=== PATIENT | male | born 1960 | race Caucasian/White ===

== ENCOUNTER 2020-09-20 18:43 | Inpatient (IN) | payer OTHER ==
[~2020-09-20] VITALS: Ht 175.3 cm; Wt 74.8 kg
--- NOTE | 2020-09-20 19:30 | NUR ---
DR LIGHT AT BEDSIDE FOR MSE.
[2020-09-20 19:40] VITALS: Ht 175.3 cm; Wt 74.8 kg
[2020-09-20 20:07] LABS: BASOPHIL % 0.4 % (0.2-1.5); PLATELET COUNT 238 x10^3mcL (152-348); RED CELL DISTRIBUTION WIDTH 17.1 % (12.1-16.2)
--- NOTE | 2020-09-20 20:08 | NUR ---
AFIB ON CM, MEDICATED PT WITH 10MG DILTIAZEM.
[2020-09-20 20:19] LABS: ALBUMIN 3.4 g/dL (3.4-5.0); BILIRUBIN TOTAL 1.4 mg/dL (0.20-1.00); CALCIUM 9.1 mg/dL (8.5-10.1); CARBON DIOXIDE 25.3 mmol/L (21-32); CREATININE SERUM 1.5 mg/dL (0.7-1.3); POTASSIUM SERUM 5.5 mmol/L (3.5-5.1)
[2020-09-20 21:58] VITALS: BP 136/95
--- NOTE | 2020-09-20 22:00 | NUR ---
LAB WAS UNABLE TO DRAW BLOOD CULTURES, PER ELECTRO MECHANIC SHE WILL WAIT FOR NEXT SHIFT TO TRY TO DRAW LABS FOR BLOOD CX DUE TO PT BEING A HARD STICK
--- NOTE | 2020-09-20 22:05 | NUR ---
ATTEMPTED TO HELP PT COLLECT URINE X2, UNABLE TO URINATE. UNABLE TO COLLECT SPECIMEN AT THIS TIME
--- NOTE | 2020-09-20 23:47 | NUR ---
PT STILL UNABLE TO URINATE. AWARE. PT ATTEMPTED TO URINATE 2 MORE TIMES FOR LAB ORDER
--- NOTE | 2020-09-21 00:58 | NUR ---
PT STILL UNABLE TO URINATE, SITTING UP IN BED, OFFICVERS AT [facility], PT UPDATED ON POC
[2020-09-21 04:08] LABS: AMPHETAMINE QUAL UR NONE DETECTED (See below)
--- NOTE | 2020-09-21 04:22 | NUR ---
PT SATURATING LOW FROM 80-85% RT AT BEDSIDE, PT IS TACHY ,WILL CALL MD FOR ORDERS
--- NOTE | 2020-09-21 05:00 | NUR ---
PT TACHYCARDIC, RT AWARE AND ARE PREPARING TO PUT PT ON BIPAP. MORPHINE 2 MG GIVEN FOR PAIN WELL CARDIZEM 15MG. NURSE AND RT AT BEDSIDE
[2020-09-21 05:26] LABS: MAGNESIUM 2.5 mg/dL (1.8-2.4)
[2020-09-21 05:28] LABS: CHOLESTEROL/HDL RATIO 5.3
--- NOTE | 2020-09-21 05:44 | NUR ---
PT MOVED FROM BED 9 TO BED 11. PT WAS CONNECTED TO BIPAP MACHINE BY RT BROWN. PT TOLERATING WELL. PT CALM AND COOPERTIVE. PT HAS GUARDS AT BEDSIDE. PT PLACED ON FULL CM WILL CONTINUE TO MONITOR.
--- NOTE | 2020-09-21 06:18 | NUR ---
PT SEEN WITH BIPAP MASK OFF. PT WAS RE EDUCATED TO LEAVE MASK ON FOR HIS SAFETY.
--- NOTE | 2020-09-21 06:23 | NUR ---
SPOKE WITH DR. BELCHER REGARDING PTS ELEVATED HR. PER DR. BELCHER GIVE 9AM SCHEDULED MEDICATION OF METOPROLOL NOW.
--- NOTE | 2020-09-21 06:39 | NUR ---
PT MEDICATED WITH METOPROLOL 25MG PO PER DR. BELCHER ORDER.
--- NOTE | 2020-09-21 07:25 | NUR ---
GAVE REPORT TO DEV PATEL TO ASSUME PRIMARY CARE OF PT.
--- NOTE | 2020-09-21 07:30 | NUR ---
ASSUMED CARE. DR BELCHER CALLED . REPEAT EKG AT THIS TIME. CALL BACK WITH RESULTS. PT PULLED OUT IV. SEVERAL ATTEMPTS MADE.
--- NOTE | 2020-09-21 08:00 | NUR ---
DR BELCHER CALLED. PT EKG AFIB RVR WITH RATE OF 161. PER DR BELCHER CALL SURGERY FOR A CENTRAL LINE AND [facility]
[2020-09-21 08:17] LABS: BASOPHIL % 1.7 % (0.2-1.5); PLATELET COUNT 228 x10^3mcL (152-348)
--- NOTE | 2020-09-21 08:31 | NUR ---
DR TREVIZO STATES WILL REVIEW CHART AND PLACED ORDERS FOR HEART RATE.
--- NOTE | 2020-09-21 08:41 | NUR ---
CONSENT SIGNED FOR CENTRAL LINE. CENTRAL LINE AT BEDSIDE
[2020-09-21 08:56] LABS: CALCIUM 8.7 mg/dL (8.5-10.1); CREATININE SERUM 1.6 mg/dL (0.7-1.3); POTASSIUM SERUM 4.8 mmol/L (3.5-5.1)
--- NOTE | 2020-09-21 09:30 | NUR ---
ER MD SHAH AT BEDSIDE FOR CENTRAL LINE
--- NOTE | 2020-09-21 10:00 | NUR ---
CENTRAL LINE PLACED BY DR SHAH . MENA CALLED FOR STAT.
[2020-09-21 11:12] LABS: RED CELL DISTRIBUTION WIDTH 17.4 % (12.1-16.2)
--- NOTE | 2020-09-21 11:30 | NUR ---
PT CONTINUES ON MONITOR. LASIX NOT GIVEN. BP LOW.
--- NOTE | 2020-09-21 12:15 | NUR ---
DR BELCHER CALLED. PT INCREASED PAIN TO LOWER LEGS AND FEET. FEET PALE, TOES PURPLE, INCREASED REDNESS TO LOWER LEGS. FAINT PEDAL PULSE WITH DOPPLER. PER DR BELCHER ORDER VENOUS/ARTERIAL US OF LOWER LEGS
--- NOTE | 2020-09-21 13:40 | NUR ---
US AT BEDSIDE
--- NOTE | 2020-09-21 15:30 | NUR ---
JOB TRACER AT BEDSIDE
--- NOTE | 2020-09-21 17:30 | NUR ---
PT RESTING. RECHECK GLUCOSE WITH MEDS
--- NOTE | 2020-09-21 17:48 | NUR ---
GLUCOSE 60. PT GIVEN 8 OZ OJ . WILL MONITOR
--- NOTE | 2020-09-21 19:26 | NUR ---
REPORT TO ANDREW PATEL TO ASSUME CARE.
--- NOTE | 2020-09-21 20:50 | NUR ---
PT A&OX4, ASSISTED PT TO REPOSITION IN BED INTO POC IN HIGH FOWLERS. PT ON BIPAP.
--- NOTE | 2020-09-21 21:45 | NUR ---
MEDICATED PT PER MD ORDER, SEE EMAR. PT A&OX4 WITH E/U BREATHS, NO ACD NOTED.
--- NOTE | 2020-09-21 22:31 | NUR ---
PT ON BIPAP, A&OX4. MEDS GIVEN PER CENTRAL LINE,PO,SQ. PT TOLERATED WELL.
--- NOTE | 2020-09-21 23:20 | NUR ---
PT REQUESTED WATER, PROVIDED WATER. PT IS A&OX4 ON [employer]
--- NOTE | 2020-09-22 00:49 | NUR ---
PT FOUND SITTING ON THE FLOOR WITH A CUP URINATING, BIPAP WAS ALSO NOTED UNPLUGGED. BOTH BEDRAILS WERE UP. WHEN I ASKED PATIENT HOW HE ENDED UP ON THE FLOOR, HE SAID: "I SCOOT OUT OF BED TO THE EDGE TO GRAB A URINAL AND I FELL". PT ALSO STATED: "I'M OKAY, I'M OKAY". PT IS A&OX4, WORK OF BREATH UPON EXERTION. RT ARRIVED AND CONNECTED PT BACK TO BIPAP, O2 SAT AT 97%. ASSISTED PT TO STANDING POSITION WITH HELP FROM EMT SARAH, MINE UTILITY OPERATOR AND MYSELF THEN PT WAS ASSISTED TO SIT IN BED. PT CONTINUES TO OXYGENATE WELL ON BIPAP. PT DENIES INJURIES, UPON ASSESSMENT OF PATIENT, NO INJURIES NOTED TO BODY. PLACED A URINAL AND CALL LIGHT AT BEDSIDE. INSTRUCTED PT HE IS NOT TO GET OUT OF BED UNASSISTED. PT WAS NOT HANDCUFFED TO BEDRAIL AT THE TIME OF INCIDENT. PT VERBALIZED UNDERSTANDING THAT HE WOULD NOT SCOOT OUT OF BED TO THE FOOT OF THE BED NOR WOULD HE ATTEMPT TO GET OUT OF BED WITHOUT ASSISTANCE. INCIDENT. P PT VERBALIZED UNDERSTANDING HE IS NOT
--- NOTE | 2020-09-22 02:01 | NUR ---
PT REQUESTED BLANKET, PROVIDED HIM WITH BLANKET AND REPLACED URINAL AT BEDSIDE. PT IS A&OX4 ON BIPAP.
--- NOTE | 2020-09-22 03:10 | NUR ---
PT RESTING IN POC IN HIGH FOWLERS, EASILY AROUSED UPON ENTERING ROOM.
--- NOTE | 2020-09-22 04:40 | NUR ---
RT AT BEDSIDE.
--- NOTE | 2020-09-22 06:43 | NUR ---
PT MEDICATED PER MD ORDER, SEE BS 131 AT BEDSIDE. NO INSULIN NEEDED PER SLIDING SCALE. PT IS A&OX4.
[2020-09-22 08:56] LABS: PLATELET COUNT 165 x10^3mcL (152-348)
[2020-09-22 09:47] LABS: BASOPHIL % 0 % (0.2-1.5); RED CELL DISTRIBUTION WIDTH 17.6 % (12.1-16.2)
[2020-09-22 10:05] LABS: CARBON DIOXIDE 24.4 mmol/L (21-32); CREATININE SERUM 1.5 mg/dL (0.7-1.3); POTASSIUM SERUM 4.2 mmol/L (3.5-5.1)
--- NOTE | 2020-09-22 11:21 | NUR ---
REPORT GIVEN TO TRUDI PATEL TO ASSUME CARE OF PATIENT.
--- NOTE | 2020-09-22 12:31 | NUR ---
1112:30 UPDATE. OPTAINED REPORT FROM PRIOR RN. ON ARRIAL PT SLUMPED IN BED NEEDING URINAL. PT HAS GREAT DIFFICULTY MOVING AND REPOSITIONING HIMSELF, GROSS OBESITY WITH DISCOLORED EDEMATOUS LOWER ETREMITIES. WAS REPOSITIONED HIGH FOWLERS, REMAINS ON BIPAP. GLUCOSE 93.; V/S NOTED. LOVENO HAS BEEN ORDERED. LOVVVVE
--- NOTE | 2020-09-22 15:07 | NUR ---
ATTEMPTED TO CHANGE PT LINENS. IS ABLE TO SIT AT SIDE OF THE BED BUT UNABLE TO STAND. PT CAN NOT LIFT HIS BODY ENOUGH TO GET CLEAN PADS UNDER HIM AND IS TOO SOB TO LAY FLAT FOR 1 PERSON TO TURN HIM. WILL ATTEMPT LATER MORE ASSISTANCE IS AVAILABLE.
--- NOTE | 2020-09-22 18:05 | NUR ---
GLUCOSE NOTED. PLACED CLEAN RAMIREZ BEHIND HIS BACK. PT WAS NOTED TRYING TO OOB FROM THE FOOT OF THE GURNEY AGAIN. INSTRUCTED TO MOVE BACK ONTO THE GURNEY AND DO NOT ATTEMPT OOB. HE IS UNABLE TO SUPPORT HIS OWN WEIGHT AND REMAINS WEAK.
--- NOTE | 2020-09-22 18:36 | NUR ---
SHIFT UPDATE AND SUMMARY. PT HAS TOLERATED BIPAP VERY WELL. HAS TAKEN SOME PO FLUIDS WITH ASSIST. GLUCOSE MONITORING HAS CONTINUED. MEDS PER ORDER, PO'S LATE DUE TO ORDERING FROM PHARMACY. (AND V/S PARAMETERS) REMAINS VERY WEAK, NEARLY FULL ASSIST BUT A&O. UNABLE TO CLEARLY ASCULTATE BREATH SOUNDS DUE TO EXHAUST FAN IN ROOM AND PT BODY HABITUS. HANDS REMAIN COLD/ MOTTLED. UNABLE TO OBTAIN PERIPHERAL SAO2. ABD LARGE, PENDULOUS, HAS BEEN URINATING (URINAL) HAS AREAS OF BRUISING WELL SOME AREAS OF "EXCORIATED" APPEARING NON OPEN AREAS. LOWER EXTREMITIES= VERY EDEMATOUS AND WEEPING, PAINFUL TO TOUCH AND MOVEMENT. SOME AREAS OF REDNESS NOTED WHILE OTHERS APPERA PURPLE / BRUISED TO MOTTLED IN APPEARANCE. NO TRUE PRESSURE ULCERS TO NOTE- OBVIOUS IRRATATION, DIFFUSE REDNESS FROM RESIDUAL URINE AND TISSUE FLUID. V/S HAVE REMAINED STALE THROUGHOUT. WAS ABLE TO CHANGE LINEN AND PLACE CLEAN CHUX UNDER PT AT 18:30 WITH 2 PERSON ASSIST. GUARDS REMAIN PRESENT.
--- NOTE | 2020-09-22 18:45 | NUR ---
UPDATE AND SHIFT SUMMARY. PT HAS REMAINED TOLERATING BIPAP WELL, OCCASIONALLY SLEEPING / RESTING. NO RESP C/O'S "MORE THAN USUAL". S.O.B. BEING TREATED WITH BIPAP. HAS TAKEN PO FLUIDS, NOT FOOD DUE TO BIPAP. USED URINAL, NO BM'S. MEDS PROVIDED, IV TO SL AFTER IVPB. NOTED HIS SISTER WHO IS A NURSE CALLED. PT OK WITH STAFF DISCUSSING INFORMATION WITH HER AND PT HAS HER NUMBER TO CALL OR TEXT.
--- NOTE | 2020-09-22 20:14 | NUR ---
PT REQUESTING TO EAT. PT BIPAP MASK HAS BEEN REMOVED FOR EATING. PT HAS BEEN INSTRUCTED TO KEEP HIGH FLOW NONREBREATHER MASK ON WHILE EATING. WILL REMAIN WITH PT UNTIL COMPLETION OF MEAL AND WILL REPLACE BIPAP MAKENNA ON PT.
--- NOTE | 2020-09-22 20:26 | NUR ---
PT TOLERATED EATING MEAL WELL. PT WAS PLACED BACK ON BIPAP. PT ATE 100% OF MEAL PROVIDED AND DRANKS APROX 16ML OF FLUIDS.
--- NOTE | 2020-09-22 22:37 | NUR ---
PT VISIBLE SOILED BED LINENS. PT GOWN AND BED LINENS REMOVED AND REPLACED WITH FRESH CLEAN GOWN AND LINENS.
--- NOTE | 2020-09-22 23:45 | NUR ---
PT FOUND IN ROOM WITH TUBING TO BIPAP MASK DETATCHED FROM MASK. TUBING WAS REATTACHED TO PT MASK. PT AAO X4 AT THIS TIME NO ACUTE DISTRESS NOTED. PT O2 SAT ATTEMPTED BUT UNABLE TO OBTAIN ACCURATE READING DUE TO PT HAVING COLD MOTTLED FINGERS.
--- NOTE | 2020-09-22 23:49 | NUR ---
PT LAYING SUPINE IN GURNEY IN A POSITION OF COMFORT WITH EYES CLOSED. PT AAO X4 NO ACUTE DISTRESS NOTED. GUARDS REMAIN OUTSIDE PT ROOM.
--- NOTE | 2020-09-23 01:10 | NUR ---
PT SEEN LAYING IN RIGHT LATERAL POSITION IN GURNEY WITH EYES CLOSED. IN A POSITION OF COMFORT. PT REMAINS CONNECTED TO FULL CM AND BIPAP MACHINE. PT O2 SAT STILL UNABLE TO ASSESS DO TO MULTIPLE ATTEMPTS AND VARIED PROBE LOCATIONS. WILL CONTINUE TO MONITOR.
--- NOTE | 2020-09-23 03:42 | NUR ---
PT SITTING UPRIGHT IN GURNEY IN A POSITION OF COMFORT. PT AAO X4 NO ACUTE DISTRESS NOTED. PT REQUESTING WATER. PT WAS PROVIDED WITH WATER AT THIS TIME. GUARDS REMAIN AT BEDSIDE WITH PT.
--- NOTE | 2020-09-23 05:36 | NUR ---
SPOKE WITH RT REGARDING PTS BIPAP MACHINE ALARMS. PER RT IT THERE IS NO WAY TO SHUT ALARM OFF DUE TO PT SETTINGS. RT STATES NO NEED TO WORRY ABOUT THAT ALARM FOR PTS MACHINE.
--- NOTE | 2020-09-23 05:44 | NUR ---
PT REPORTING PAIN AND REQUESTING MEDICATION. PT WAS MEDICATED FOR PAIN PER MD ORDER ON EMAR.
--- NOTE | 2020-09-23 07:10 | NUR ---
GAVE REPORT TO FROYLAN RN TO ASSUME CARE OF PT.
--- NOTE | 2020-09-23 07:26 | NUR ---
PT UP NO DISTRESS OBSERVED RT AT BEDSIDE
--- NOTE | 2020-09-23 09:10 | NUR ---
TAKEN OFF BIPAP TO EAT. PLACED ON 15L NRB, RN FROYLAN AT BEDSIDE. SPO2:97%, PT TOLERATING WELL. WILL CONT.TO MONITOR
--- NOTE | 2020-09-23 09:19 | NUR ---
BRKFST TRAY GIVEN
[2020-09-23 09:56] LABS: PLATELET COUNT 158 x10^3mcL (152-348)
[2020-09-23 10:06] LABS: RED CELL DISTRIBUTION WIDTH 17.7 % (12.1-16.2)
[2020-09-23 10:20] LABS: CARBON DIOXIDE 25.8 mmol/L (21-32); CHLORIDE SERUM 100 mmol/L (98-107); CREATININE SERUM 1.1 mg/dL (0.7-1.3); GFR1 > 60 mL/min; GLUCOSE SERUM 112 mg/dL (74-106); POTASSIUM SERUM 3.6 mmol/L (3.5-5.1); SODIUM SERUM 136 mmol/L (136-145)
[2020-09-23 11:38] LABS: CALCIUM 8.3 mg/dL (8.5-10.1)
--- NOTE | 2020-09-23 12:20 | NUR ---
DENIES PAIN OR DISCOMFORT 2 CIM GUARDS AT BEDSIDE
--- NOTE | 2020-09-23 14:12 | NUR ---
STARTED ON IV ATB
--- NOTE | 2020-09-23 14:59 | NUR ---
MEDICATED FOR PAIN
--- NOTE | 2020-09-23 15:28 | NUR ---
PT ADMIT TO IC13 GAVE REPORT KRISHNA
[2020-09-23 16:20] VITALS: BP 133/78
--- NOTE | 2020-09-23 17:09 | NUR ---
PT WAS B/B HURNEY FROM ED TO BED 13. TELE PT. PT WAS A/OX3, WITH NON BREATHING MASK. O2 SAT 98%, WITH SOB. GENERALIZED WEAKNESS. PT SPEAKS FULL SENTENCES, FOLLOWS COMMAND, 2 CARE HOME GUARDS WITH PT. SKIN INTACT, BILATERAL LEG REDNESS WITH CELLULITIS BUT NO KO. RT CAME IN @1630, CHANGED BIPAP ON 07/14.
--- NOTE | 2020-09-23 18:12 | NUR ---
REMOVED BIPAP AND PLACED ON 10L OXYMIZER. SPO2:90% SO PT CAN EAT. WILL CONT.TO MONITOR
--- NOTE | 2020-09-23 18:13 | NUR ---
RT CAME IN AND PUT HIGH FLOW ON. DINNER WAS OFFERED. PT WAS SITTING UP TO EAT DINNER.
[2020-09-23 20:00] VITALS: BP 153/89
--- NOTE | 2020-09-23 20:00 | NUR ---
PATIENT RECEIVED RESTING IN BED, ALERT, ORIENTED X3. BREATH SOUNDS DIMINISHED, ON OXYMIZER AT 10L. R IJ TLC CATHETER PATENT AND INTACT. +2-3 EDEMA TO BLE NOTED. OBESE. VOIDING FREELY, USES URINAL. REDNESS TO BLE NOTED. GENERALIZED WEAKNESS, NEEDS MINIMAL ASSISTANCE WITH ADL'S. 2 DEPUTY AT THE BEDSIDE. PLACED CALL LIGHT WITHIN REACH. WILL CONTINUE TO MONITOR.
--- NOTE | 2020-09-23 21:11 | NUR ---
Spoke to Dr. Nina and Dr Ruano and ok to transfer to tele. Will continue to monitor. Fiona made aware.
--- NOTE | 2020-09-23 22:39 | NUR ---
PATIENT FOR TRANSFER TO ROOM 255 B. REPORT GIVEN TO LILY PATEL FOR CONTINUATION OF CARE.
--- NOTE | 2020-09-23 22:40 | NUR ---
PT RECIEVED FROM ICU. PT TRANSFERRED TO BED BY SELF. DENIES PAIN OR DISCOMFORT. PT PLACED ON BIPAP AT THIS TIME. NO S/S OF DISTRESS NOTED. ALL NEEDS AND CONCERNS ADDRESSED. WILL CONTINUE TO MONITOR.
[2020-09-24 05:48] VITALS: BP 150/105
--- NOTE | 2020-09-24 06:26 | NUR ---
PT RESTING IN BED AT THIS TIME, DENIES PAIN OR DISCOMFORT. PT BREATHING E/U ON BIPAP AT THIS TIME. DENIES SOB. SP02 97%. IV TO RIJ. CDI. NO S/S OF ACUTE DISTRESS NOTED. ALL NEEDS AND CONCERNS ADDRESSED. WILL CONTINUE TO MONITOR.
--- NOTE | 2020-09-24 07:04 | NUR ---
RECEIVED PT FROM [employer] FIRM ACCOUNTS MANAGER NURSE. AOX4 ABLE TO MAKE NEEDS KNOWN , DENIES HERNANDES/DIZZINESS. TELE 36 A FIB, DENIES CP. PERIPHERAL PULSES WEAK, EDEMA TO BLE +3. DIMINISHED LUNG SOUNDS PT CURRENTLY ON BIPAP, NO SOB/COUGH NOTED. ABDOMEN SOFT/DISTENDED. BOWEL SOUNDS ACTIVE. BLE SWELLING WITH REDNESS AND WEEPING NOTED. CALL LIGHT IN REACH, WILL CONTINUE TO MONITOR.
[2020-09-24 08:08] LABS: BASOPHIL % 0.4 % (0.2-1.5); PLATELET COUNT 155 x10^3mcL (152-348)
[2020-09-24 08:17] VITALS: BP 140/103
[2020-09-24 09:49] LABS: CALCIUM 8.1 mg/dL (8.5-10.1); CARBON DIOXIDE 26.1 mmol/L (21-32); CHLORIDE SERUM 101 mmol/L (98-107); GFR1 > 60 mL/min; GLUCOSE SERUM 93 mg/dL (74-106); POTASSIUM SERUM 3.4 mmol/L (3.5-5.1); SODIUM SERUM 137 mmol/L (136-145)
[2020-09-24 11:29] LABS: RED CELL DISTRIBUTION WIDTH 17.5 % (12.1-16.2)
[2020-09-24 12:16] VITALS: BP 135/93
[2020-09-24 16:52] VITALS: BP 139/97
[2020-09-24 19:54] VITALS: BP 137/102
--- NOTE | 2020-09-24 20:41 | NUR ---
PT RECIEVED AAO REG RESP DIMINISHED TO NEREYDA LOWER BASES ON 15L NRM SAT 94%,HOB,ABDOIDDOFT OBSES WITH ACTIVE BOWEL SOUNDS,PT WITH BLE EDEMA 4+ WEEPING AND NOT ABLE TO PALAPTE THE PULSES,RED ANAYA ALL OVER THE LEGS,PT HAS RIJ SITE PATENT AND INTACT,BED IN THE LOW POSITIONAND LOCKED,KEPT CLEAN AND DRY TO TOUCH AND WILL CONTINUE TO MONITOR.
--- NOTE | 2020-09-25 00:42 | NUR ---
PT CLEAN AND WAS MADE COMFORTABLE INBED AND WILL CONTINUE TO MONITOR.
[2020-09-25 05:27] VITALS: BP 134/99
--- NOTE | 2020-09-25 06:22 | NUR ---
PT HAD A RESTING NIGHT NO CHNAG EAT THIS TIME AND WILL CONTINUE TO MONITOR.
--- NOTE | 2020-09-25 07:20 | NUR ---
RECEIVED PT FROM MARKETING ANALYTICS ANALYST RN. AOX4 ABLE TO MAKE NEEDS KNOWN, DENIES HERNANDES/DIZZINESS. TELE 36 A FIB, DENIES CP. PERIPHERAL PULSES WEAK, +3 EDEMA TO BLE NOTED. CONTINUES ON NRB MASK AT 15LPM, BIPAP USE AT NIGHT. ABDOMEN SOFT/ROUND, DENIES N/V/D. PT MEDICATED FOR LOW BACK PAIN THIS AM. IV TO RIJ IN PLACE, CDI. CALL LIGHT IN REACH, WILL CONTINUE TO MONITOR.
[2020-09-25 09:07] VITALS: BP 137/104
--- NOTE | 2020-09-25 13:09 | NUR ---
PT BACK FROM [facility].
[2020-09-25 15:33] LABS: BASOPHIL % 0.1 % (0.2-1.5); PLATELET COUNT 170 x10^3mcL (152-348)
[2020-09-25 15:39] LABS: RED CELL DISTRIBUTION WIDTH 17.5 % (12.1-16.2)
[2020-09-25 16:00] LABS: CHLORIDE SERUM 99 mmol/L (98-107); CREATININE SERUM 0.8 mg/dL (0.7-1.3); GFR1 > 60 mL/min; GLUCOSE SERUM 153 mg/dL (74-106); POTASSIUM SERUM 3.4 mmol/L (3.5-5.1); SODIUM SERUM 140 mmol/L (136-145)
--- NOTE | 2020-09-25 20:25 | NUR ---
PT RECIEVED AAO REG RESP NO SOB ON 15L NRM SAT 95%,HOB,ABDO IS SOFT WITH ACTIVE BOWEL SOUNDS,PT WITH REDNESS TO BLE AND WEEPING EDEMA 4+ NO ABLE TO PALPATE PULSES NEED DOPPLER,PT HAS CENTRAL LINE TO THE RIJ SITE INTACT,CALL LIGHT EASY RACHED AND WILL CONTINUE TO MONITOR.
[2020-09-25 21:24] VITALS: BP 164/73
--- NOTE | 2020-09-25 22:23 | NUR ---
PT WAS SEEN BY RT WAS PUT IN R/A SAT 97%,WILL CONTINUE TO MONITOR.
[2020-09-26 05:33] VITALS: BP 160/91
--- NOTE | 2020-09-26 07:09 | NUR ---
DREESING WAS DONE TO THE RIJ LINE,SITE INTACT,PT HAD A RESTING AT THIS TIME,WILL CONTINUE TO MONITOR.
--- NOTE | 2020-09-26 07:41 | NUR ---
CONTINUATION OF CARE OF THE PATIENT,PT RESTING AT THIS TIME,REG RESP NO SOB PT IN R/A SAT 96%,ABDO IS SOFT WITH ACTIVE BOWEL SOUNDS,PT HAS CENTRAL LINE TO THE RIJ SITE INTACT,ABDO IS SOFT WITH ACTIVE BOWEL SOUNDS,PT WITH BLE EXTRE REDNESS AND WEEPING EDEMA 3+,KEPT CLEAN AND DRY TO TOUCH AND WILL CONTINUE TO MONITOR.
[2020-09-26 08:29] LABS: BASOPHIL % 0.1 % (0.2-1.5); PLATELET COUNT 144 x10^3mcL (152-348)
[2020-09-26 08:42] VITALS: BP 143/85
[2020-09-26 08:52] LABS: CALCIUM 7.3 mg/dL (8.5-10.1); CARBON DIOXIDE 32.4 mmol/L (21-32); CHLORIDE SERUM 97 mmol/L (98-107); CREATININE SERUM 0.9 mg/dL (0.7-1.3); GFR1 > 60 mL/min; GLUCOSE SERUM 105 mg/dL (74-106); SODIUM SERUM 136 mmol/L (136-145)
[2020-09-26 09:40] LABS: RED CELL DISTRIBUTION WIDTH 17.2 % (12.1-16.2)
--- NOTE | 2020-09-26 10:53 | NUR ---
PT WAS HELP TO THE BSC AHD A LARGE BOWEL MOVEMENT,CLEAN AND WAS MADE COMFORTABLE IN BED AND WILL CONTINUE TO MONITOR.
--- NOTE | 2020-09-26 12:08 | NUR ---
PT KEPT NPO FOR THE PROCEDURE THIS AFTERNOON AND AWARE AND COOPERATIVE,CONSENT SGIN,WILL CONTINUE TO MONITOR.
[2020-09-26 12:09] VITALS: BP 125/74
--- NOTE | 2020-09-26 12:55 | NUR ---
PT BEING SEEN BY THE RT ORDER,WILL CONTINUE TO MONITOR.
--- NOTE | 2020-09-26 13:26 | NUR ---
REC'D REPORT FROM SUYAPA PATEL.
--- NOTE | 2020-09-26 14:09 | NUR ---
TELE REMOVED. PT BROUGHT DOWN TO PUBLIC RELATIONS ASSISTANT BY RN X2
--- NOTE | 2020-09-26 15:26 | NUR ---
REC'D REPORT FROM LEONID PATEL. NEGATIVE CARDIAC CATH.
--- NOTE | 2020-09-26 15:28 | NUR ---
CALLED DR. BELCHER. NOTIFIED OF K 3.0 WITHOUT ANY COVERAGE. PT ON LASIX. REC'D ORDER FOR 40 MEQ KLOR CON NOW AND ANOTHER 40 MEQ IN 4 HOURS. ALSO NOTIFIED OF NORMAL CARDIAC CATH RESULTS.
--- NOTE | 2020-09-26 15:54 | NUR ---
PT BACK FROM CARDIAC CATH. AAOX4, SPEECH CLEAR, FOLLOWS COMMANDS. TR BAND TO R WRIST IN PLACE WITH WRIST GUARD. C/O 9/10 PAIN TO ANKLES AND FEET. DIFFUSE EDEMA ERYTHEMA. ELEVATED WITH PILLOWS. BP 159/96. CALLED DR. BELCHER TO NOTIFY OF CURRENT BP WELL PAIN MED HAVE DROPPED OFF. ORDERED TO RE ADD PAIN MED. NO PRN BP MEDS AT THIS TIME PER WILL GIVE MORPHINE ONCE VERIFIED BY PHARMACY.
--- NOTE | 2020-09-26 15:54 | NUR ---
1. When/if pt receives medical approve to receive solid foods, recommend CCHO 75g/Cardiac diet as tolerate.
--- NOTE | 2020-09-26 15:54 | NUR ---
Initial Nutrition Assessment: 255 B LEBRON PARRISH 60M MR Dx: CHF, New [place]set A-FIB PMHx: CAD, HTN, DM, Hypothyroidism, Asthma, Bronchitis PSHx: none Labs: (09/26) K 3.0L, CL 97L, BUN 19.0H, CA 7.3L, RBC 3.86L, H/H 11.8L/36L, PLT 144L* HbA1C no reported (09/23) Troponin 0.305H (09/20) BG 132H, Bili 1.4H, AST 304H, ALT 478H, ALK 145H, * HDL 24L, rest of lipid panel wnl Meds: Digoxin, Eliquis, Coreg, Mylanta/Maalox, Lasix, Lisinopril, Colace, Vancocin, Levaquin, Humulin PRN, Nitrostat Diet: NPO Except Meds PO intake since admission: 80-100%, average 93% x 3 meals Ht: 175 cm/69 in Wt: 74.84 kg/165 lbs BMI: 24.4 kg/m2 Bed scale: unable to assess d/t isolation IBW: 73 kg/160 lbs %IBW: 103% UBW: unknown Age: 60 y/o Food Allergies: unknown Edema: BLE edema Last BM: 09/26 per RN Skin: warm and dry Raghu: 16 Per H and P (09/20): 60 y/o male h/o CAD HTN DM obesity sleep apnea [facility] resident. he c/o increased sob throughout the day, symptoms worsen he was seen and evaluated at the ED, he was with SOB and weakness. he was hypoxic, and was in afib. cxr revealed congestion and infiltrates. he was admitted to tele. initial COV was neg. troponin was also neg. pt was admitted with dx: new onset AFIB, CAD, CHF, hypoxia, pneumonia, HTN, DM, hypothyroidism, asthma RD Note (09/26): Per progress note (09/26): Status post successful LAW/cardioversion, now normal sinus rhythm. Shortness of breath has improved. Unable to visit pt d/t isolation and unable to contact pt via pt's bedside phone d/t [facility] resident. Per pt's RN, pt has good appetite, and he ate 100% of his breakfast this morning. Pt started NPO after breakfast d/t procedure (cardiac catheterization). No n/v/d/c reported per RN. No chewing/swallowing difficulties observed per RN. Last BM was today per RN. Pt's average PO intake 93% meeting 100% energy and protein needs. Problem with: N/V/D/C: none per RN Problems with: Chewing: Swallowing: none per RN Current appetite: good per RN Recent wt change: unknown %wt change: n/a Height: unknown Vitamin/Supplement use: unknown Special diet at home: unknown Physical activity: unknown Nutrition education given (specify specific nutrition education and handout given): written education "Low-Sodium Nutrition Therapy" from [facility] was provided to pt via RN. Food-drug interactions? Education given? n/a Estimated Nutritional Needs Based on ideal body weight (73 kg) Energy: 1825 - 2190 kcal/day (25 - 30 kcal/kg for CHF) Protein: 58 - 73g/day (0.8 - 1 g/kg for CHF) Fluid: 1825 mL/day (25 ml/kg/ for CHF) or per MD Nutrition Diagnosis: 1. Impaired nutrient utilization r/t sodium and fluid retention from CHF a/e/b BLE edema and pt was admitted with for CHF. Intervention 1. When/if pt receives medical approve to receive solid foods, recommend CCHO 75g/Cardiac diet as tolerate. Monitor/Evaluate Goal: PO intake at least 75% of estimated needs Monitor: PO intake, Labs, GI function F/U in 3 - 5 days as moderate risk 09/29-
--- NOTE | 2020-09-26 16:11 | NUR ---
DIETITIAN CO-SIGN The Nutrition Notes documented by the Maintenance Worker [employer] have been reviewed. Reviewed/Co-Signed by: Peyman Fontenot Documentation Done by: Ambreen Onofre
[2020-09-26 16:23] VITALS: BP 159/96
--- NOTE | 2020-09-26 17:06 | NUR ---
AIR IN TR BAND DELFATED. NO BLEEDING AT THE SIDE. TR BAND REMOVED. COTTON APPLIED. R WRIST GUARD IN PLACE. MORPHINE GIVEN FOR 9/10 ANKLE AND FEET PAIN. CALLED DR. BELCHER TO SEE IF OKAY RESUME DIET. STATED TO START ON 2G NA DIET FOR DINNER.
--- NOTE | 2020-09-26 19:20 | NUR ---
RECEIVED PT FROM AM RN. PT A&OX4, DENIES CHEST PAIN OR DISCOMFORT AT THIS TIME. DENIES SOB, DENIES N/V OR PAIN AT THIS TIME. PT ON TELE 36 WITH NSR 76. LUNGS SOUNDS CLEAR BILATERAL. BOWEL SOUDNS ACIVE ALL 4 QUAS, PT FORGET LAST BM. ABDOMEN ROUND, NONTENDER. PT VOIDS FREELY WITH URINAL. PT AWARES WEAK AND TIRED. REDNESS SKIN COLOR NOTED ON BILATER ARMS. REDNESS AND WELLING NOTED ON BILATERAL LOWER LEGS AND FEET. RJ CENTRAL LINES INTACT AND PATENT. NO RENDESS OR SWELLING NOTED AT RIGHT WRIST FOR CATH PROCEDURE. PT DINIES PAIN AT THE RIGHT WRIST, CIRCULATION GOOD NOTED. INSTRUCTED PT TO USE CALL LIGHT, CALL LIGHT WITHIN REACH. GUARDS / SECURITIES AT BEDSIDE. WILL CONTINUE TO MONITOR PT.
[2020-09-26 21:58] VITALS: BP 138/84
--- NOTE | 2020-09-27 02:25 | NUR ---
INTO CHECKED ON PT. PT ASLEEP. NO DISTRESS NOTED AT THIS TIME. NO ACUTE CHANGES WITH CONDITION. SAFETY MEASURES ARE IN PLACE. WILL CONTINUE TO MONITOR PT.
[2020-09-27 05:28] VITALS: BP 148/90
[2020-09-27 07:00] LABS: CALCIUM 7.7 mg/dL (8.5-10.1); CARBON DIOXIDE 30.4 mmol/L (21-32); CHLORIDE SERUM 99 mmol/L (98-107); GFR1 > 60 mL/min; GLUCOSE SERUM 104 mg/dL (74-106); POTASSIUM SERUM 3.4 mmol/L (3.5-5.1); SODIUM SERUM 137 mmol/L (136-145)
[2020-09-27 07:30] LABS: BASOPHIL % 0.2 % (0.2-1.5); PLATELET COUNT 148 x10^3mcL (152-348)
--- NOTE | 2020-09-27 07:30 | NUR ---
RECIEVED PT FROM CLIENT ASSOCIATE. ASSESSED AND WILL DOCUMENT. DENIES ANY PAIN. NO SOB NOTED THIS TIME. SOB ON EXERTION AT TIME. SPO2 97% IN RA. SAFTEY PRECAUTIONS ARE IN PLACE. GAURDS AT BEDSIDE. WILL MONITOR.
--- NOTE | 2020-09-27 07:30 | NUR ---
REPORT GAVE TO AM RN. PT RESTED WELL DURING SHIFT. NO DISTRESS NOTED. NO ACUTE CHANGES DURING SHIFT. PT ON ROOM AIR WITH O2 SAT 95%. DENIES CHEST PAIN OR DISCOMFORT. SAFETY MEASURES ARE IN PLACE. ALL CARES ENDORSE TO AM RN.
[2020-09-27 07:39] LABS: RED CELL DISTRIBUTION WIDTH 17.3 % (12.1-16.2)
--- NOTE | 2020-09-27 07:45 | NUR ---
PASSENGER RATE CLERK INFORMED PT RUNED INDU FOR FEW SEC. CHECKED V/S STABLE. DENIES CHEST PAIN. NO SOB NOTED. PT SITTING UP IN THE BED AND EATING BREAKFAST.
[2020-09-27 08:46] VITALS: BP 156/86
--- NOTE | 2020-09-27 09:44 | NUR ---
MORTGAGE LOAN COUNSELOR INFORMED PT RUNED AFIB FOR 3 SEC. CHECKED ON PT. DENIES CHEST PAIN. V/S STABLE. NO SOB NOTED. PT LYING WAY DOWN IN THE BED. REPOSITINED PT AND GAVE COMFORTABLE POSITION. PUT HEAD UP. SPO2 97% IN RA.
--- NOTE | 2020-09-27 13:05 | NUR ---
PT SITTING UP IN THE BED COMFORTABLY. EATING WELL. DENIES ANY PAIN. NO SOB NOTED. WILL MONITOR.
--- NOTE | 2020-09-27 14:00 | NUR ---
[facility] 16.4. LANA PATEL NOTIFIED.
--- NOTE | 2020-09-27 14:00 | NUR ---
INFORMED ABOUT PT RUNED INDU AND FEW SEC AFIB IN AM, ASYMPTAMATIC. NO NEW ORDER RECEIVED THSI TIME.
--- NOTE | 2020-09-27 14:10 | NUR ---
INFORMED PHARMACIST ABOUT VANCO TROUGH 16.4, THEY SAID TO CONTINUE SAME DOSE.
[2020-09-27 17:25] VITALS: BP 116/77
--- NOTE | 2020-09-27 19:05 | NUR ---
PT REMAINS STABLE. DENIES ANY PAIN. GLASS PRODUCTION MACHINE OPERATOR SOB NOTED. GAVE REPORT TO LAST TURNER NURSE.
--- NOTE | 2020-09-27 19:30 | NUR ---
RECEIVED PT FROM DAY SHIFT RN. PT A&OX4, DENIES CHEST PAIN OR DISCOMFORT. PT REMAINS ON ROOM AIR WTIHOUT RESPIRATORY DISTRESS NOTED, O2 SAT 95%. PT C/O LEGS AND FEET PAIN WITH 4/10, DENIES PAIN MEDICATION AT THIS TIME. ALL SAFETY MEASURES ARE IN PLACE. CALL LIGHT WITHIN REACH. GUARD/SECURITY PERSONNEL AT BEDSIDE. WILL CONTINUE TO MONITOR PT.
[2020-09-27 21:04] VITALS: BP 133/71
--- NOTE | 2020-09-27 21:40 | NUR ---
PT C/O LEGS AND FEET PAIN AT SCALE 9/10. MEDIATION NORCO PO 5/325MG 1TAB GIVEN. INSTRUCTED PT ABOUT THE MEDICATION AND POSSIBLE SIDE EFFECTS. PT VERBALLY UNDERSTOOD. INSTRUCTED PT TO USE CALL LIGHT WHEN NEED ASSISTANCE. WILL REASSESS AND MONITOR PT.
--- NOTE | 2020-09-28 02:45 | NUR ---
INTO CHECKED ON PT. PT RESTING IN BED. NO DISTRESS NOTED AT THIS TIME. CALL LGIHT WITHIN REACH, WILL CONTINUE TO CARE FOR PT.
[2020-09-28 05:36] VITALS: BP 147/77
[2020-09-28 06:31] LABS: BASOPHIL % 0.4 % (0.2-1.5); PLATELET COUNT 157 x10^3mcL (152-348)
[2020-09-28 06:42] LABS: RED CELL DISTRIBUTION WIDTH 16.7 % (12.1-16.2)
[2020-09-28 06:47] LABS: CALCIUM 7.5 mg/dL (8.5-10.1); CARBON DIOXIDE 29.7 mmol/L (21-32); CHLORIDE SERUM 103 mmol/L (98-107); CREATININE SERUM 0.9 mg/dL (0.7-1.3); GFR1 > 60 mL/min; GLUCOSE SERUM 102 mg/dL (74-106); POTASSIUM SERUM 3.7 mmol/L (3.5-5.1); SODIUM SERUM 141 mmol/L (136-145)
--- NOTE | 2020-09-28 06:53 | NUR ---
PT RESTED WELL DURING SHIFT. NO DISTRESS OR DISCOMFORT NOTED AT THIS TIME. PT DENIES CHEST PAIN OR CHEST DISTRESS. DENIES SOB, DENIES N/V. CALL LIGHT WITHIN REACH. ALL CARE WILL ENDORSE TO ONCOMING RN.
--- NOTE | 2020-09-28 07:30 | NUR ---
RECEIVED PT FROM REVENUE TAX SPECIALIST. DENIES ANY PAIN THIS TIME. ASSESSED AND WILL DOCUMENT. STABLE. SAFTEY PRECAUTIONS ARE IN PLACE. GAURDS AT BEDSIDE. WILL MONITOR.
[2020-09-28 09:00] VITALS: BP 114/60
--- NOTE | 2020-09-28 12:40 | NUR ---
PT SITTING UP IN THE BED, EATING LUNCH. STABLE. DENIES ANY PAIN. NO SOB NOTED. AMRITA Paul BEDSIDE.
[2020-09-28 13:00] VITALS: BP 137/69
--- NOTE | 2020-09-28 17:15 | NUR ---
PT RESTING IN BED COMFORTABLY. DENIES ANY PAIN. TELE REMOVED ORDERED. STABLE.
--- NOTE | 2020-09-28 19:30 | NUR ---
RECEIVED PT FROM DAY SHIFT RN. PT A&OX4, DENIES CHEST PAIN OR DISCOMFORT. DENIES SOB, ON ROOM AIR WTIH O2 SAT 95.%. PT DID C/O FEET PAIN ON SCALE OF 8/10, MEDICATION WILL GIVEN FOR PAIN. PT INSTRUCTED TO USE CALL LIGHT AND PHONE WHEN NEEDS ASSISTANCE. GUARDS AT BEDSIDE. WILL CONTINUE TO MONITOR PT.
--- NOTE | 2020-09-28 19:35 | NUR ---
PT REMINS STABLE. DENIES ANY PAIN. STABLE. GAVE REPORT TO TAXICAB DRIVER NURSE.
--- NOTE | 2020-09-28 19:45 | NUR ---
MEDICATION, NORCO 1TAB PO GIVEN FOR FEET PAIN AT 8/10. PT BE EDUCATED THE POSSIBILITY OF SIDE EFFECTS OF MEDICATION. WILL REASSESS AND MONITOR PT.
[2020-09-28 21:57] VITALS: BP 167/90
--- NOTE | 2020-09-29 02:29 | NUR ---
CHECKED ON PT.PT RESTING COMFORTABLE IN BED. NO DISTRESS NOTED AT THIS TIME. ALL SAFETY MEASURES ARE IN PLACE. CALL LIGHT WITHIN REACH. WILL CONTINUE TO MONITOR PT.
[2020-09-29 06:48] VITALS: BP 152/85
[2020-09-29 07:35] VITALS: BP 169/80
--- NOTE | 2020-09-29 07:48 | NUR ---
REPORT GAVE TO AM RN. PT RESTED WELL DURING SHIFT. NO ACUTE CHANGES NOTED. PT DENIES CHEST PAIN OR ANY DISCOMFORT AT THIS TIME. CALL LIGHT WITHIN REACH. ALL CARE ARE ENDORSE TO AM RN.
--- NOTE | 2020-09-29 08:00 | NUR ---
PATIENT RESTING IN BED. GUARDS PRESENT. SIGNIFICANT EDEMA NOTED TO BUE AND BLE WELL ERYTHEMA. PATIENT IS ON ANTIBIOTICS. HE STATED IT WAS PAINFUL TO TOUCH. HE IS ON LASIX TO DECREASE SWELLING. BED LOCKED IN LOWEST POSITION. CALL LIGHT WITHIN REACH. PATIENT PRONING.
[2020-09-29 10:36] LABS: CALCIUM 7.5 mg/dL (8.5-10.1); CARBON DIOXIDE 27.1 mmol/L (21-32); CHLORIDE SERUM 107 mmol/L (98-107); GFR1 > 60 mL/min; GLUCOSE SERUM 188 mg/dL (74-106); POTASSIUM SERUM 3.5 mmol/L (3.5-5.1); SODIUM SERUM 142 mmol/L (136-145)
[2020-09-29 10:56] LABS: BASOPHIL % 0.6 % (0.2-1.5); PLATELET COUNT 171 x10^3mcL (152-348)
[2020-09-29 12:42] VITALS: BP 162/79
[2020-09-29 14:44] LABS: RED CELL DISTRIBUTION WIDTH 17.5 % (12.1-16.2)
[2020-09-29 17:22] VITALS: BP 165/97
--- NOTE | 2020-09-29 19:52 | NUR ---
RECEIVED PT FROM DAY SHIFT NURSE. RR EVEN AND UNLABORED. NO ADN. BED LOCKED AND LOWERED. CALL LIGHT WITHIN REACH. WILL CONTINUE WITH PLAN OF CARE.
[2020-09-29 21:22] VITALS: BP 144/77
--- NOTE | 2020-09-30 00:45 | NUR ---
PT RESTING IN BED. RR EVEN AND UNLABORED. NO ADN. BED LOCKED AND LOWERED. CALL LIGHT WITHIN REACH. WILL CONTINUE TO MONITOR.
[2020-09-30 06:04] VITALS: BP 149/76
--- NOTE | 2020-09-30 06:42 | NUR ---
PT RESTING IN BED. RR EVEN AND UNLABORED. NO ADN. BED LOCKED AND LOWERED CALL LIGHT WITHIN REACH. WILL ENDORSE TO DAY SHIFT NURSE.
--- NOTE | 2020-09-30 08:04 | NUR ---
AAO TIMES 4. MED SURG PATIENT. LUNGS CTA. O2 SAT 95% ON RA. BS'S ACTIVE TIMES 4. OBESE. PERIPHERAL PULSES PALPABLE. RIJ PATENT, CDI. +1 EDEMA BUE, +2 EDEMA BLE. COOPERATIVE. CIM PRISONER, GUARDS AT DOORWAY. NO C/O PAIN. NO SOB.
[2020-09-30 08:25] VITALS: BP 187/106
[2020-09-30 08:40] LABS: BASOPHIL % 0.7 % (0.2-1.5); PLATELET COUNT 206 x10^3mcL (152-348)
[2020-09-30 08:47] LABS: CALCIUM 7.9 mg/dL (8.5-10.1); CARBON DIOXIDE 28.4 mmol/L (21-32); CHLORIDE SERUM 101 mmol/L (98-107); GFR1 > 60 mL/min; GLUCOSE SERUM 120 mg/dL (74-106); POTASSIUM SERUM 3.4 mmol/L (3.5-5.1); SODIUM SERUM 138 mmol/L (136-145)
[2020-09-30 09:04] LABS: RED CELL DISTRIBUTION WIDTH 17.3 % (12.1-16.2)
[2020-09-30 12:08] VITALS: BP 106/57
[2020-09-30 15:07] VITALS: BP 119/64
--- NOTE | 2020-09-30 18:00 | NUR ---
AAO TIMES 4. CIM PRISONE, GUARDS POSTED OUTSIDE DOOR. MED SURG PATIENT. IV SITE RIJ PATENT, CDI. NO C/O PAIN. COOPERATIVE. NO SOB.
--- NOTE | 2020-09-30 19:55 | NUR ---
RECEIVED PT FROM AM NURSE, PT AWAKE IN BED AA/O X 4, ABLE TO MAKE NEEDS KNOWN. CLEAR SPEECH, DENIES HEADACHE/ DENIES DIZZINESS. MED SURG, DENIES CHEST PAIN/ CHEST PRESSURE. 2+/3+ EDEMA TO BLE. 2+ EDEMA TO BUE. PULSES PALPABLE. LUNG SOUNDS CTA/ RESPIRATIONS E/U ON RA. DENIES SOB. ACTIVE BS X 4 QUADS, DENIES N/V/D. VOIDS USING BSC, GENERALIZED WEAKNESS. CLOSED WOUND TO BUTTOCKS. DENIES PAIN AT THIS TIME. RIJ 3 LUMEN PATENT, LUMENS FLUSHED, DRSG CDI. CIM PT WITH TWO GUARDS OUTSIDE BEDROOM. SHAKLE TO ANKLE, SKIN INTACT/ CIRCULATION WNL. ALL NEEDS MET. CALL BUTTON WITHIN REACH, WILL CONTINUE TO MONITOR.
[2020-09-30 21:53] VITALS: BP 149/76
--- NOTE | 2020-10-01 00:33 | NUR ---
PT IN BED RESTING WITH EYES CLOSED, BUT EASILY AROUSABLE. IVPB ANTIBIOTIC INFUSING WELL TO RIJ. RISE AND FALL OF CHEST OBSERVED. TELE MONITOR #24, HR 79 BPM AT THIS TIME. NO SIGNS OF ACUTE DISTRESS. CIM PT WITH SHACKLE TO LEFT ANKLE, SKIN INTACT/ CIRCULATION WNL. 2 CIM GUARDS OUTSIDE ROOM AT ALL TIMES FOR SAFETY. CALL BUTTON WITHIN REACH, WILL CONTINUE TO MONITOR.
[2020-10-01 06:25] VITALS: BP 151/90
--- NOTE | 2020-10-01 07:08 | NUR ---
PT SLEPT IN INTERVALS THROUGHOUT THE NIGHT, BUT EASILY AROUSABLE. BLOOD SUGAR WNL, ALL MEDS AND IVPB ATB GIVEN PER ORDER. DENIES PAIN AT THIS TIME. ALL NEEDS MET. NO ACUTE CHANGES OVERNIGHT. CIM PT WITH TWO GUARDS OUTSIDE ROOM AT ALL TIMES. CALL BUTTON WITHIN REACH, CARE ENDORSED TO AM NURSE.
[2020-10-01 07:54] LABS: PLATELET COUNT 206 x10^3mcL (152-348)
[2020-10-01 08:13] LABS: RED CELL DISTRIBUTION WIDTH 17.6 % (12.1-16.2)
[2020-10-01 08:21] LABS: CARBON DIOXIDE 30.1 mmol/L (21-32); CHLORIDE SERUM 100 mmol/L (98-107); GFR1 > 60 mL/min; GLUCOSE SERUM 86 mg/dL (74-106); POTASSIUM SERUM 3.4 mmol/L (3.5-5.1); SODIUM SERUM 137 mmol/L (136-145)
--- NOTE | 2020-10-01 08:49 | NUR ---
AAO TIMES 4. MED SURG PATIENT. LUNGS CTA BUL, DIMINISHED BASES. O2 SAT ON RA 97%. BS'S ACTIVE TIMES 4. DELANEY WITH GENERALIZED WEAKNESS. +3 EDEMA BLE, +1 TO +2 EDEMA BUE. IV SITE TO RIJ PATENT, CDI. COOPERATIVE. CIM PRISONER, GUARDS AT DOOR WAY. NO C/O PAIN.
[2020-10-01 08:50] VITALS: BP 172/94
[2020-10-01 12:40] VITALS: BP 142/78
--- NOTE | 2020-10-01 15:42 | NUR ---
1. Recommend CCHO 75/Cardiac diet. Recommendation provided to Dr. Ruano and manager of training. Recommendation was acknowledged by both.
--- NOTE | 2020-10-01 15:42 | NUR ---
Follow-up Nutrition Assessment: [address] LE[address]ON PARRISH 60M MR Dx: CHF, [place] A-FIB PMHx: CAD, HTN, DM, Hypothyroidism, Asthma, Bronchitis PSHx: none Labs: (10/01) K 3.4L (09/26) K 3.0L, CL 97L, BUN 19.0H, CA 7.3L, RBC 3.86L, H/H 11.8L/36L, PLT 144L* HbA1C not reported (09/23) Troponin 0.305H (09/20) BG 132H, Bili 1.4H, AST 304H, ALT 478H, ALK 145H, * HDL 24L, rest of lipid panel wnl Meds: [place], Vancocin, Zosyn, Levaquin, Zestril, Mylanta, Eliquis, Coreg, Lasix, Colace, Aspirin, Humulin, Lnoxin, Morphine sulfate Diet: NA2G PO Intake: 80-100% x 13 meals with average PO intake of 94.6% Wt: 74.84 kg/165 lbs Bed scale: 288.7lbs BMI: 24.4 kg/m2 *however, pt's bed scale measured 288lbs, BMI=42.6kg/m2 Edema: +3 edema BLE, +1 to +2 edema BUE Last BM: 09/30 per pt Skin: scattered cabs noted to BLE Raghu: [address] (09/26), Per progress note (09/26): Status post successful LAW/cardioversion, now normal sinus rhythm. Shortness of breath has improved. Unable to visit pt d/t isolation and unable to contact pt via pt's bedside phone d/t CIM resident. Per pt's RN, pt has good appetite, and he ate 100% of his breakfast this morning. Pt started NPO after breakfast d/t procedure (cardiac catheterization). No n/v/d/c reported per RN. No chewing/swallowing difficulties observed per RN. Last BM was today per RN. Pt's average PO intake 93% meeting 100% energy and protein needs. RD Note (10/01/2020): Pt was seen lying in bed with no signs of distress. Pt appeared to be obese, and bed scale measured 288.7lbs. Per pt, he had good appetite with no GI issues or chewing/swallowing difficulty. Pt's average PO intake continue to be adequate at 94.6% meeting > 75% of estimated needs. Estimated Nutritional Needs Based on ideal body weight (73 kg) Energy: 3757-5839 kcal/day (20-25 kcal/kg for weight reduction) Protein: 58 - 73g/day (0.8 - 1 g/kg for maintenance) Fluid: 1825 mL/day (25 ml/kg/ for CHF) or per MD Nutrition Diagnosis: 1. Impaired nutrient utilization r/t sodium and fluid retention from CHF a/e/b BLE edema and pt was admitted with for CHF (ongoing) Intervention 1. Recommend CCHO 75/Cardiac diet. Recommendation provided to Dr. Ruano and child development professor. Recommendation was acknowledged by both. Monitor/Evaluate Goal: PO intake at least 75% of estimated needs Monitor: PO intake, Labs, GI function F/U in 3 - 5 days as moderate risk 10/04-
[2020-10-01 17:44] VITALS: BP 144/75
--- NOTE | 2020-10-01 18:54 | NUR ---
AAO TIMES 4. CIM PRISONER, WITH GUARDS AT BEDSIDE. MED SURG PATIENT. NO C/O PAIN. NO SOB. IV SITE TO RIJ PATENT, CDI. COOPERATIVE.
[2020-10-01 21:27] VITALS: BP 121/74
--- NOTE | 2020-10-01 22:00 | NUR ---
PT IS A&OX4. TEMP 97, HR 63, RR 20, BP 121/74, NO PAIN REPORTED, SPO2 99% ON RA. PT HAS CONTUSION ON BOTH UPPER EXTREMITIES, STATED IT WAS FROM ABG AND IV INTITIATION. PT HAS +3 BLE EDEMA, +2 BUE EDEMA. IV SITE TO R JUGULAR. PT IS CALM AND COORPERATIVE. PT IS A CIM PRISONER WITH GUARDS OUTSIDE. PT IS IN NO ACUTE DISTRESS AT THIS TIME. CALL LIGHT WITHIN REACH, WILL CONTINUE TO MONITOR.
--- NOTE | 2020-10-01 22:30 | NUR ---
CENTRAL LINE DRESSING CHANGED USING STERILE TECHNIQUE. PT TOLERATED WELL.
--- NOTE | 2020-10-02 01:28 | NUR ---
PT WAS RESTING WITH EYES CLOSED BUT EASILY AROUSABLE. RISE AND FALL OF CHEST WAS OBSERVED. PT WAS IN NO ACUTE DISTRESS AT THIS TIME. SHACKLES TO LEFT WRIST. SKIN INTACT. CIRCULATION WITHIN NORMAL LIMITS. CIM OFFICERS AT BEDSIDE.
[2020-10-02 05:57] VITALS: BP 140/88
--- NOTE | 2020-10-02 06:37 | NUR ---
PT WAS RESTING WITH EYES CLOSED BUT EASILY AROUSABLE. BLOOD SUGAR WNL. DENIES PAIN NO ACUTE CHANGES OVERNIGHT. CIM PT WITH GUARDS IN ROOM. CALL LIGHT WITHIN REACH. WILL ENDORSE CARE TO AM NURSE.
--- NOTE | 2020-10-02 06:54 | NUR ---
NURSING CO-SIGN THE DOCUMENTATION ENTERED BY THE IP HAS BEEN REVIEWED. REVIEWED/CO-SIGNED BY: Alisha Ashby DOCUMENTATION DONE BY: KAREEM DEVI
--- NOTE | 2020-10-02 07:30 | NUR ---
RECEIVED REPORT FROM NIGHT NURSE. PATIENT RESTING IN BED, AAO TIMES 4. DENIES PAIN AND DISCOMFORT. RESPIRATIONS EVEN AND UL ON RA. BED IN LOWEST POSITION, CALL LIGHT IN REACH, SAFETY MEASURES IN PLACE.
[2020-10-02 08:44] LABS: BASOPHIL % 1.1 % (0.2-1.5); PLATELET COUNT 228 x10^3mcL (152-348)
[2020-10-02 08:49] LABS: CALCIUM 8.3 mg/dL (8.5-10.1); CARBON DIOXIDE 28.5 mmol/L (21-32); CHLORIDE SERUM 101 mmol/L (98-107); CREATININE SERUM 1.1 mg/dL (0.7-1.3); GFR1 > 60 mL/min; GLUCOSE SERUM 85 mg/dL (74-106); POTASSIUM SERUM 3.6 mmol/L (3.5-5.1); SODIUM SERUM 138 mmol/L (136-145)
[2020-10-02 09:15] VITALS: BP 149/81
[2020-10-02 09:21] LABS: RED CELL DISTRIBUTION WIDTH 17.4 % (12.1-16.2)
[2020-10-02 12:51] VITALS: BP 151/76
[2020-10-02 14:32] VITALS: BP 151/76
--- NOTE | 2020-10-02 17:40 | NUR ---
RECEIVED DISCHARGE ORDERS. DISCHARGE INSTRUCTIONS/PACKET GIVEN AND EXPLAINED TO PATIENT/GUARDS AT BEDSIDE. PATIENT VERBALIZED UNDERSTANDING OF ALL DISCHARGE INSTRUCTIONS. R CENTRAL LINE REMOVED BY TODD PATEL, TIP INTACT, TEGADERM APPLIED, PATIENT TOLERATED WELL.
== END 2020-10-02 17:50 | DRG 871 ==
LOC: ED 18:43 → DU 21:29 → IW 09-23 15:35 → DU 09-23 23:00 → MU 09-28 17:12
PROVIDERS: Emergency Medicine; ADMIT Internal Medicine; ATTEND Internal Medicine
PROC: 5A09357 Assistance with Respiratory Ventilation, Less than 24 Consecutive Hours, Continuous Positive Airway Pressure (ICD-10-PCS; principal; 2020-09-24)
PROC: 5A2204Z Restoration of Cardiac Rhythm, Single (ICD-10-PCS; 2020-09-25)
PROC: 4A023N7 Measurement of Cardiac Sampling and Pressure, Left Heart, Percutaneous Approach (ICD-10-PCS; 2020-09-26)
PROC: B2111ZZ Fluoroscopy of Multiple Coronary Arteries using Low Osmolar Contrast (ICD-10-PCS; 2020-09-26)
DX: A41.9 Sepsis, unspecified organism (principal); J96.01 Acute respiratory failure with hypoxia; I50.41 Acute combined systolic (congestive) and diastolic (congestive) heart failure; J18.9 Pneumonia, unspecified organism; I21.4 Non-ST elevation (NSTEMI) myocardial infarction; N17.9 Acute kidney failure, unspecified; Z68.41 Body mass index [BMI] 40.0-44.9, adult; L03.115 Cellulitis of right lower limb; I13.0 Hypertensive heart and chronic kidney disease with heart failure and stage 1 through stage 4 chronic kidney disease, or unspecified chronic kidney disease; I42.9 Cardiomyopathy, unspecified; E66.01 Morbid (severe) obesity due to excess calories; I48.0 Paroxysmal atrial fibrillation; G47.33 Obstructive sleep apnea (adult) (pediatric); Z88.8 Allergy status to other drugs, medicaments and biological substances; Z87.01 Personal history of pneumonia (recurrent); I25.10 Atherosclerotic heart disease of native coronary artery without angina pectoris; E03.9 Hypothyroidism, unspecified; E11.51 Type 2 diabetes mellitus with diabetic peripheral angiopathy without gangrene; E11.22 Type 2 diabetes mellitus with diabetic chronic kidney disease
CPT/HCPCS: CLHCL; 36600; 82962; 83880; 97110-GP; 97116-GP; 97530-GP; C1760; C1769; C1894; G0378; J0360; J0696; J1160; J1644; J1650; J1815; J1885; J1940; J1956; J2001; J2250; J2270; J2310; J2543; J3010; J3370; J3490; J7030; J7040; J7050; Q9967; U0003